=== PATIENT | male | born 1940 | race Caucasian/White ===

== ENCOUNTER 2016-10-26 18:45 | Observation (INO) | payer MEDICARE ==
[~2016-10-26] VITALS: Ht 185.4 cm; Wt 80.0 kg
[2016-10-26] VITALS (10 sets, daily range): BP systolic 84–149; BP diastolic 55–84; PULSE 70–78; RESP 15–18; TEMP 98.3; O2SAT 95–97
[~2016-10-26 18:45] MED LIST: ASPI81CH CHEW; MELA5TAB15 PO; PLAV75TA29 PO; PRIL10CA PO; SIMV20TA PO; XANA1TAB2 PO
[2016-10-26] MEDS ORDERED: IOHEXOL 350 MG/ML 10 ML VIAL (for RAD DIAG) IVCONTRAST ONE (18:46)
[2016-10-26] MEDS ORDERED: SODIUM CHLOR 0.9% 1000 ML INJ 1,000 ML IV SCH (19:06)
--- NOTE | 2016-10-26 19:33 | RADRPT ---
EXAM DATE/TIME: 10/26/2016 19:20 [facility] COMPARISON: CHEST SINGLE AP, January 11, 2016, 10:51. INDICATIONS : Abdominal pain. MEDICAL HISTORY : Myocardial infarction. Hypercholesterolemia. SURGICAL HISTORY : Coronary artery stent. Cardiac cath. ENCOUNTER: Initial ACUITY: 3 months PAIN SCORE: 5/10 LOCATION: Abdomen. FINDINGS: A single view of the chest demonstrates cardiomegaly. Large hiatal hernia similar to prior study. Min imal basal atelectasis. No effusion or pneumothorax. CONCLUSION: 1. Minimal basilar atelectasis. Large hiatal hernia. No pneumothorax. Ramses Leon MD on October 26, 2016 at 19:28 Board Certified Radiologist. This report was verified electronically.
[2016-10-26 19:56] LABS: BASOPHIL % 0.3 % (0.0-2.0); EOSINOPHIL % 0.5 % (0.0-4.0); HEMATOCRIT 34.9 % (39.0-51.0); HEMO FLAGS DIFF FINAL; LYMPH % 17.5 % (9.0-44.0); LYMPHOCYTE # 1.2 TH/MM3 (1.0-4.8); MEAN CELL VOLUME 98.2 FL (80.0-100.0); MEAN CORPUSCULAR HEMOGLOBIN 32.2 PG (27.0-34.0); MEAN CORPUSCULAR HGB CONC 32.8 % (32.0-36.0); MONO % 8.5 % (0.0-8.0); NEUT % 73.2 % (16.0-70.0); PLATELET COUNT 149 TH/MM3 (150-450); RED BLOOD COUNT 3.55 MIL/MM3 (4.50-5.90); RED CELL DISTRIBUTION WIDTH 12.8 % (11.6-17.2); WHITE BLOOD COUNT 6.8 TH/MM3 (4.0-11.0)
[2016-10-26] MEDS ORDERED: MELA1TAB18 PO (20:03)
[2016-10-26] MEDS ORDERED: SIMV40TA PO (20:03)
[2016-10-26] MEDS ORDERED: OMEP20TA PO (20:03)
[2016-10-26 20:25] LABS: ANION GAP 12 MEQ/L (5-15); AST (GOT) 17 U/L (15-37); BLOOD UREA NITROGEN 14 MG/DL (7-18); CHLORIDE 106 MEQ/L (98-107); GLOMERULAR FILTRATION RATE 51 ML/MIN (>89); MAGNESIUM 2.1 MG/DL (1.5-2.5); SODIUM (NA) 141 MEQ/L (136-145)
[2016-10-26 20:26] LABS: ALT (GPT) 20 U/L (12-78)
[2016-10-26 20:28] LABS: APTT (PATIENT) 24.4 SEC (24.3-30.1); INTERNATIONAL NORMALIZED RATIO 1.1 RATIO; PROTHROMBIN TIME - PATIENT 11.7 SEC (9.8-11.6)
[2016-10-26 20:36] LABS: ALKALINE PHOSPHATASE 76 U/L (45-117); TOTAL BILIRUBIN ADULT 0.5 MG/DL (0.2-1.0)
[2016-10-26 20:44] LABS: CREATINE KINASE 51 U/L (39-308)
--- NOTE | 2016-10-26 20:57 | PD ---
HPI Chief Complaint: Syncope/Near-Syncope Time Seen by Provider: 19:06 Travel History International Travel<30 days: No Contact w/Intl Traveler<30days: No Traveled to known affect area: No History of Present Illness HPI 76-year-old male that presents to the ED for evaluation of possible syncope. Patient states that he was driving and he noted that all of a sudden he was losing his vision. Per patient his vision went "white". Per patient she also had some abdominal pain and nausea. He states that he was able to stop and catch himself when he noted that he had an episode of vomiting. Per patient a bystander called the Ambulance and and was recommended that he comes here. Patient was initially found to be hypotensive and was given IV fluids with improvement of his hypotension. Patient states that she's never had anything like this before. He has no history of syncope what he does have a history of TIA in the past. He states that he takes Plavix regularly. He denies any head injury or chest pain at the time of the episode. He does state that he had the pressure on his upper abdomen. Per patient his been having some abdominal discomfort after he eats greasy food for which his been trying to follow with a GI but has not been able to get more than one visit and he is waiting for a CT scan. He has no allergies to medication. He denies any other medical issues. He has no symptoms at this time. PFSH Past Medical History Arthritis: No Autoimmune Disease: No Anxiety: Yes Heart Rhythm Problems: No Cancer: No Cardiac Catheterization: Yes Cardiovascular Problems: Yes High Cholesterol: Yes Chemotherapy: No Chest Pain: Yes Congestive Heart Failure: No Cerebrovascular Accident: Yes (no deficits noted) Diabetes: No Endocrine: No GERD: Yes Genitourinary: No Hiatal Hernia: No Immune Disorder: No Musculoskeletal: Yes Neurologic: Yes Psychiatric: No Reproductive: No Respiratory: No Radiation Therapy: No Sickle Cell Disease: No Thyroid Disease: No Ulcer: No Past Surgical History Abdominal Surgery: No AICD: No Arteriovenous Shunt: No Cardiac Surgery: No Coronary Stent: Yes Endocrine Surgery: No Eye Surgery: Yes Genitourinary Surgery: No Gynecologic Surgery: No Insulin Pump: No Joint Replacement: No Pacemaker: No Thoracic Surgery: No Other Surgery: Yes Social History Alcohol Use: No Tobacco Use: No Substance Use: No Allergies-Medications (Allergen,Severity, Reaction): Coded Allergies: No Known Allergies (Verified , 10/26/16) Reported Meds & Prescriptions Reported Meds & Active Scripts Active Reported Melatonin 10 Mg-1 Mg Tab 10 Mg PO HS PRN Simvastatin 40 Mg Tab 40 Mg PO HS Omeprazole 20 Mg Tab 20 Mg PO DAILY Aspirin 81 Mg Chew 81 Mg CHEW DAILY Xanax (Alprazolam) 1 Mg Tab 1 Mg PO HS PRN Plavix (Clopidogrel Bisulfate) 75 Mg Tab 75 Mg PO DAILY Review of Systems Except as stated in HPI: all other systems reviewed are Neg Physical Exam Narrative GENERAL: SKIN: Warm and dry. HEAD: Atraumatic. Normocephalic. EYES: Pupils equal and round 4 mm reactive to light and accommodation. No scleral icterus. No injection or drainage. ENT: No nasal bleeding or discharge. Mucous membranes pink and moist. Tongue is midline. No uvula deviation. NECK: Trachea midline. No JVD. CARDIOVASCULAR: Regular rate and rhythm. No murmurs, S3, S4. RESPIRATORY: No accessory muscle use. Clear to auscultation. Breath sounds equal bilaterally. GASTROINTESTINAL: Abdomen soft, non-tender, nondistended. Hepatic and splenic margins not palpable. MUSCULOSKELETAL: Extremities without clubbing, cyanosis, or edema. No obvious deformities. Full range of motion of the upper and lower extremities bilaterally. 2+ pulses bilaterally. NEUROLOGICAL: Awake and alert. No obvious cranial nerve deficits. Motor grossly within normal limits. Five out of 5 muscle strength in the arms and legs. Normal speech. PSYCHIATRIC: Appropriate mood and affect; insight and judgment normal. Data Data Last Documented VS Vital Signs Date Time Temp Pulse Resp B/P (MAP) Pulse Ox O2 Delivery O2 Flow Rate FiO2 10/26/16 21:35 70 16 136/66 (89) 95 Room Air 10/26/16 19:03 98.3 Orders Orders Complete Blood Count With Diff (10/26/16 19:06) Comprehensive Metabolic Panel (10/26/16 19:06) Ckmb (Isoenzyme) Profile (10/26/16 19:06) Troponin I (10/26/16 19:06) Prothrombin Time / Inr (Pt) (10/26/16 19:06) Act Partial Throm Time (Ptt) (10/26/16 19:06) Lipase (10/26/16 19:06) Urinalysis - C+S If Indicated (10/26/16 19:06) Magnesium (Mg) (10/26/16 19:06) Thyroid Stimulating Hormone (10/26/16 19:06) Chest, Single Ap (10/26/16 19:06) Ct Brain W/O Iv Contrast(Rout) (10/26/16 19:06) Ct Abd/Pel W Iv Contrast(Rout) (10/26/16 19:06) Iv Access Insert/Monitor (10/26/16 19:06) Ecg Monitoring (10/26/16 19:06) Oximetry (10/26/16 19:06) Orthostatic Vital Signs (10/26/16 19:06) Sodium Chlor 0.9% 1000 Ml Inj (Ns 1000 M (10/26/16 19:06) Iohexol 350 Inj (Omnipaque 350 Inj) (10/26/16 18:46) Alprazolam (Xanax) (10/26/16 22:15) Aspirin Chew (Aspirin Chew) (10/27/16 09:00) Clopidogrel (Plavix) (10/27/16 09:00) (Nf) Melatonin (10/26/16 22:15) (Nf) Omeprazole (10/27/16 09:00) Admit Order (Ed Use Only) (10/26/16 22:04) (Nf) Simvastatin (10/27/16 21:00) Labs Laboratory Tests Test 10/26/16 19:25 10/26/16 21:20 White Blood Count 6.8 TH/MM3 Red Blood Count 3.55 MIL/MM3 Hemoglobin 11.4 GM/DL Hematocrit 34.9 % Mean Corpuscular Volume 98.2 FL Mean Corpuscular Hemoglobin 32.2 PG Mean Corpuscular Hemoglobin Concent 32.8 % Red Cell Distribution Width 12.8 % Platelet Count 149 TH/MM3 Mean Platelet Volume 7.9 FL Neutrophils (%) (Auto) 73.2 % Lymphocytes (%) (Auto) 17.5 % Monocytes (%) (Auto) 8.5 % Eosinophils (%) (Auto) 0.5 % Basophils (%) (Auto) 0.3 % Neutrophils # (Auto) 5.0 TH/MM3 Lymphocytes # (Auto) 1.2 TH/MM3 Monocytes # (Auto) 0.6 TH/MM3 Eosinophils # (Auto) 0.0 TH/MM3 Basophils # (Auto) 0.0 TH/MM3 CBC Comment DIFF FINAL Differential Comment Prothrombin Time 11.7 SEC Prothromb Time International Ratio 1.1 RATIO Activated Partial Thromboplast Time 24.4 SEC Blood Urea Nitrogen 14 MG/DL Creatinine 1.36 MG/DL Random Glucose 167 MG/DL Total Protein 6.5 GM/DL Albumin 3.5 GM/DL Calcium Level 8.2 MG/DL Magnesium Level 2.1 MG/DL Alkaline Phosphatase 76 U/L Aspartate Amino Transf (AST/SGOT) 17 U/L Alanine Aminotransferase (ALT/SGPT) 20 U/L Total Bilirubin 0.5 MG/DL Sodium Level 141 MEQ/L Potassium Level 4.0 MEQ/L Chloride Level 106 MEQ/L Carbon Dioxide Level 23.0 MEQ/L Anion Gap 12 MEQ/L Estimat Glomerular Filtration Rate 51 ML/MIN Total Creatine Kinase 51 U/L Troponin I LESS THAN 0.02 NG/ML Lipase 85 U/L Thyroid Stimulating Hormone 3rd Gen 1.440 uIU/ML Urine Color YELLOW Urine Turbidity HAZY Urine pH 6.0 Urine Specific [place] 1.024 Urine Protein 30 mg/dL Urine Glucose (UA) NEG mg/dL Urine Ketones TRACE mg/dL Urine Occult Blood NEG Urine Nitrite NEG Urine Bilirubin NEG Urine Urobilinogen 2.0 MG/DL Urine Leukocyte Esterase NEG Urine RBC 1 /hpf Urine WBC 4 /hpf Urine Squamous Epithelial Cells <1 /hpf Urine Mucus FEW /lpf Microscopic Urinalysis Comment CULT NOT INDICATED MDM Medical Decision Making Medical Screen Exam Complete: Yes Emergency Medical Condition: Yes Medical Record Reviewed: Yes Interpretation(s) CBC & BMP Diagram 10/26/16 19:25 Total Protein 6.5, Albumin 3.5, Calcium Level 8.2 L, Magnesium Level 2.1, Alkaline Phosphatase 76, Aspartate Amino Transf (AST/SGOT) 17, Alanine Aminotransferase (ALT/SGPT) 20, Total Bilirubin 0.5 Last Impressions Chest X-Ray 10/26/16 190 Signed Impressions: Service Date/Time: Wednesday, October 26, 2016 19:20 - CONCLUSION: 1. Minimal basilar atelectasis. Large hiatal hernia. No pneumothorax. Ramses Leon MD CT shows no sign of acute disease other than moderate hiatal hernia. lipase WNL troponin and CKMB negative UA negative EKG shows sinus rhythm with no sign of acute ischemia or arrhythmia read by me and attending. Differential Diagnosis Syncope versus chest pain versus gastroenteritis versus possible vagal episode versus syncope versus presyncope versus ACS versus arrhythmia Narrative Course 76-year-old male that presents to the ED for evaluation of possible syncope. Patient was properly examined and was found to have signs and symptoms consistent appears to be syncope. Labs and imaging were ordered. Case was discussed in my attending Dr. Harris who agrees with plan. Patient was given IV fluids. Labs and imaging here showed hiatal hernia but otherwise unremarkable. Orthostatics within normal limits. At this time recommendations for admission for further evaluation for possible arrhythmia versus syncope. Case discussed with Dr. Al for [facility] who agrees with admission. Case discussed with my attending Dr Harris who agrees with plan. Diagnosis Primary Impression: Syncope Qualified Codes: R55 - Syncope and collapse Admitting Information Admitting Physician Requests: Observation Ananda Joyner Oct 26, 2016 20:57
--- NOTE | 2016-10-26 21:18 | RADRPT ---
EXAM DATE/TIME: 10/26/2016 20:42 [facility] COMPARISON: No previous studies available for comparison. INDICATIONS : Syncope episode. RADIATION DOSE: 56.35 CTDIvol (mGy) MEDICAL HISTORY : Cardiovascular disease. SURGICAL HISTORY : coronary stent ENCOUNTER: Initial ACUITY: 1 day PAIN SCALE: 0/10 LOCATION: cranial TECHNIQUE: Multiple contiguous axial images were obtained of the head. Using automated exposure control and adj ustment of the mA and/or kV according to patient size, radiation dose was kept as low as reasonably a chievable to obtain optimal diagnostic quality images. DICOM format image data is available electro nically for review and comparison. FINDINGS: CEREBRUM: The ventricles are normal for age. No evidence of midline shift, mass lesion, hemorrhage or acute in farction. No extra-axial fluid collections are seen. POSTERIOR FOSSA: The cerebellum and brainstem are intact. The 4th ventricle is midline. The cerebellopontine angle i s unremarkable. EXTRACRANIAL: The visualized portion of the orbits is intact. SKULL: The calvaria is intact. No evidence of skull fracture. CONCLUSION: 1. No acute intracranial abnormalities. Ramses Leon MD on October 26, 2016 at 21:10 Board Certified Radiologist. This report was verified electronically.
--- NOTE | 2016-10-26 21:24 | RADRPT ---
EXAM DATE/TIME: 10/26/2016 20:44 [facility] COMPARISON: No previous studies available for comparison. INDICATIONS : Patient complains of abdominal pain. IV CONTRAST: 80 cc Omnipaque 350 (iohexol) IV ORAL CONTRAST: No oral contrast ingested. RADIATION DOSE: 9.96 CTDIvol (mGy) MEDICAL HISTORY : Cardiovascular disease. SURGICAL HISTORY : coronary stents ENCOUNTER: Initial ACUITY: 1 day PAIN SCALE: 4/10 LOCATION: abdomen TECHNIQUE: Volumetric scanning of the abdomen and pelvis was performed. Using automated exposure control and ad justment of the mA and/or kV according to patient size, radiation dose was kept as low as reasonably achievable to obtain optimal diagnostic quality images. DICOM format image data is available electro nically for review and comparison. FINDINGS: Mild dependent atelectasis at the lung bases. There is mild ascites in the abdomen and pelvis. Large hiatal hernia with some fluid also herniated around the hiatal hernia. No acute findings in the liver , spleen, adrenals, and kidneys or pancreas. No calcified gallstones or biliary ductal dilatation. No bowel obstruction. Colonic diverticula without diverticulitis. No acute bony abnormality. Bone isl ands in the pelvis. CONCLUSION: 1. Mild ascites in the abdomen and pelvis. The liver is slightly heterogeneous but without focal lesi on identified. 2. Moderate to large hiatal hernia containing stomach and some fluid. 3. No bowel obstruction. No free air. Ramses Leon MD on October 26, 2016 at 21:16 Board Certified Radiologist. This report was verified electronically.
[2016-10-26 21:41] LABS: BLOOD, URINE NEG (NEG); COMMENT (UR) CULT NOT INDICATED; CULTURE IF INDICATED CULT NOT INDICATED; GLUCOSE,URINE NEG (NEG); KETONE, URINE TRACE mg/dL (NEG); MUCUS URINE FEW /lpf (OCC); NITRITE,URINE NEG (NEG); SQUAMOUS EPITHELIAL CELL URINE <1 /hpf (0-5); URINE COLOR YELLOW (YELLW/STRAW)
[2016-10-26] MEDS ORDERED: ALPRAZolam 1 MG TAB PO PRN (22:15)
[2016-10-26] MEDS ORDERED: NALOXONE HCL 0.4 MG/ML AMP IV PRN (22:15)
[2016-10-26] MEDS ORDERED: MELATONIN 5 MG TAB PO PRN (22:15)
[2016-10-26] MEDS ORDERED: ONDANSETRON HCL 4 MG/2 ML VIAL IVP PRN (22:15)
[2016-10-26] MEDS ORDERED: LACTULOSE SYRUP 20 GM/30 ML CUP PO PRN (22:15)
[2016-10-26] MEDS ORDERED: SENNOSIDES 8.6 MG TAB PO PRN (22:15)
[2016-10-26] MEDS ORDERED: BISACODYL 10 MG SUPP RECTAL PRN (22:15)
[2016-10-26] MEDS ORDERED: ACETAMINOPHEN 325 MG TAB PO PRN (22:15)
[2016-10-26] MEDS ORDERED: SODIUM CHLORIDE 0.9% FLUSH 10 ML FLUSH IV FLUSH PRN (22:15)
[2016-10-26] MEDS ORDERED: MAGNESIUM HYDROXIDE SUSP 30 ML CUP PO PRN (22:15)
--- NOTE | 2016-10-26 22:17 | HHI.HP ---
HPI Service [facility] Primary Care Physician Juwan Flores M.D. Admission Diagnosis syncopal episode Chief Complaint: passed out Travel History International Travel<30 Days: No Contact w/Intl Traveler <30 Da: No Traveled to Known Affected Are: No History of Present Illness 76-year-old male that presents to the ED for evaluation of possible syncope. Patient states that he was driving and he noted that all of a sudden he was losing his vision. Per patient his vision went "white". Per patient she also had some abdominal pain and nausea. He states that he was able to stop and catch himself when he noted that he had an episode of vomiting. Per patient a bystander called the Ambulance and and was recommended that he comes here. Patient was initially found to be hypotensive and was given IV fluids with improvement of his hypotension. Patient states that she's never had anything like this before. He has no history of syncope what he does have a history of TIA in the past. He states that he takes Plavix regularly. He denies any head injury or chest pain at the time of the episode. He does state that he had the pressure on his upper abdomen. Per patient his been having some abdominal discomfort after he eats greasy food for which his been trying to follow with a GI but has not been able to get more than one visit and he is waiting for a CT scan. Patient ate at restaurant and then he had the abdominal symptoms. He has no allergies to medication. He denies any other medical issues. He has no symptoms at this time. Patient no residual symptoms and has seen GI and they ordered CT as out patient will admit to observation and monitor for any arrhythmia. Review of Systems Gastrointestinal: COMPLAINS OF: Abdominal pain, Nausea, Vomiting Past Family Social History Past Medical History tia angina in past had cardiac cath,gerd,prostate problem in past, 3 months abdominal pain Past Surgical History eye surgery Reported Medications Melatonin 10 Mg-1 Mg Tab 10 Mg PO HS PRN Simvastatin 40 Mg Tab 40 Mg PO HS Omeprazole 20 Mg Tab 20 Mg PO DAILY Aspirin 81 Mg Chew 81 Mg CHEW DAILY Xanax (Alprazolam) 1 Mg Tab 1 Mg PO HS PRN Plavix (Clopidogrel Bisulfate) 75 Mg Tab 75 Mg PO DAILY Allergies: Coded Allergies: No Known Allergies (Verified , 10/26/16) Social History NS,ND Physical Exam Vital Signs Vital Signs Date Time Temp Pulse Resp B/P (MAP) Pulse Ox O2 Delivery O2 Flow Rate FiO2 10/26/16 21:35 70 16 136/66 (89) 95 Room Air 10/26/16 20:30 66 15 124/60 (81) 10/26/16 20:20 74 16 133/73 (93) 10/26/16 20:15 74 18 148/79 (102) 10/26/16 20:05 66 18 103/76 (85) 10/26/16 19:50 72 15 111/70 (84) 97 Room Air 10/26/16 19:45 70 18 88/57 (67) 95 Room Air 10/26/16 19:40 78 15 84/55 (65) 96 Room Air 10/26/16 19:03 98.3 72 16 124/72 (89) 97 Physical Exam GENERAL: This is a well-nourished, well-developed patient, in no apparent distress. SKIN: No rashes, ecchymoses or lesions. Cool and dry. HEAD: Atraumatic. Normocephalic. No temporal or scalp tenderness. EYES: Pupils equal round and reactive. Extraocular motions intact. No scleral icterus. No injection or drainage. ENT: Nose without bleeding, purulent drainage or septal hematoma. Throat without erythema, tonsillar hypertrophy or exudate. Uvula midline. Airway patent. NECK: Trachea midline. No JVD or lymphadenopathy. Supple, nontender, no meningeal signs. CARDIOVASCULAR: Regular rate and rhythm without murmurs, gallops, or rubs. RESPIRATORY: Clear to auscultation. Breath sounds equal bilaterally. No wheezes , rales, or rhonchi. GASTROINTESTINAL: Abdomen soft, non-tender, nondistended. No hepato-splenomegaly , or palpable masses. No guarding. MUSCULOSKELETAL: Extremities without clubbing, cyanosis, or edema. No joint tenderness, effusion, or edema noted. No calf tenderness. Negative Homans sign bilaterally. NEUROLOGICAL: Awake and alert. Cranial nerves II through XII intact. Motor and sensory grossly within normal limits. Five out of 5 muscle strength in all muscle groups. Normal speech. Laboratory Laboratory Tests Test 10/26/16 19:25 10/26/16 21:20 White Blood Count 6.8 Red Blood Count 3.55 Hemoglobin 11.4 Hematocrit 34.9 Mean Corpuscular Volume 98.2 Mean Corpuscular Hemoglobin 32.2 Mean Corpuscular Hemoglobin Concent 32.8 Red Cell Distribution Width 12.8 Platelet Count 149 Mean Platelet Volume 7.9 Neutrophils (%) (Auto) 73.2 Lymphocytes (%) (Auto) 17.5 Monocytes (%) (Auto) 8.5 Eosinophils (%) (Auto) 0.5 Basophils (%) (Auto) 0.3 Neutrophils # (Auto) 5.0 Lymphocytes # (Auto) 1.2 Monocytes # (Auto) 0.6 Eosinophils # (Auto) 0.0 Basophils # (Auto) 0.0 CBC Comment DIFF FINAL Differential Comment Prothrombin Time 11.7 Prothromb Time International Ratio 1.1 Activated Partial Thromboplast Time 24.4 Blood Urea Nitrogen 14 Creatinine 1.36 Random Glucose 167 Total Protein 6.5 Albumin 3.5 Calcium Level 8.2 Magnesium Level 2.1 Alkaline Phosphatase 76 Aspartate Amino Transf (AST/SGOT) 17 Alanine Aminotransferase (ALT/SGPT) 20 Total Bilirubin 0.5 Sodium Level 141 Potassium Level 4.0 Chloride Level 106 Carbon Dioxide Level 23.0 Anion Gap 12 Estimat Glomerular Filtration Rate 51 Total Creatine Kinase 51 Troponin I LESS THAN 0.02 Lipase 85 Thyroid Stimulating Hormone 3rd Gen 1.440 Urine Color YELLOW Urine Turbidity HAZY Urine pH 6.0 Urine Specific [place] 1.024 Urine Protein 30 Urine Glucose (UA) NEG Urine Ketones TRACE Urine Occult Blood NEG Urine Nitrite NEG Urine Bilirubin NEG Urine Urobilinogen 2.0 Urine Leukocyte Esterase NEG Urine RBC 1 Urine WBC 4 Urine Squamous Epithelial Cells <1 Urine Mucus FEW Microscopic Urinalysis Comment CULT NOT INDICATED Result Diagram: 10/26/16192410/26/161924 Imaging Last 24 hours Impressions Chest X-Ray 10/26/161905 Signed Impressions: Service Date/Time: Wednesday, October 26, 2016 19:20 - CONCLUSION: 1. Minimal basilar atelectasis. Large hiatal hernia. No pneumothorax. Ramses Leon MD Course In er had CT abdomen shows large hiatal hernia extending to stomach otherwise negative for acute problem ,given IV fluid as initially had low blood pressure which improved Caprini VTE Risk Assessment Caprini VTE Risk Assessment: Mod/High Risk (score >= 2) Caprini Risk Assessment Model Point Value = 1 Point Value = 2 Point Value = 3 Point Value = 5 Age 41-60 Minor surgery BMI > 25 kg/m2 Swollen legs Varicose veins or History of unexplained or recurrent spontaneous Oral contraceptives or hormone replacement Sepsis (< 1 month) Serious lung disease, including pneumonia (< 1 month) Abnormal pulmonary function Acute myocardial infarction Congestive heart failure (< 1 month) History of inflammatory bowel disease Medical patient at bed rest Age 61-74 Arthroscopic surgery Major open surgery (> 45 min) Laparoscopic surgery (> 45 min) Malignancy Confined to bed (> 72 hours) Immobilizing plaster cast Central venous access Age >= 75 History of VTE Family history of VTE Factor V Leiden Prothrombin [id number] Lupus anticoagulant Anticardiolipin antibodies Elevated serum homocysteine Heparin-induced thrombocytopenia Other congenital or acquired thrombophilia Stroke (< 1 month) Elective arthroplasty Hip, pelvis, or leg fracture Acute spinal cord injury (< 1 month) Prophylaxis Regimen Total Risk Factor Score Risk Level Prophylaxis Regimen 0-1 Low Early ambulation 2 Moderate Order ONE of the following: *Sequential Compression Device (SCD) *Heparin 5000 units SQ BID 3-4 Higher Order ONE of the following medications: *Heparin 5000 units SQ TID *Enoxaparin/Lovenox 40 mg SQ daily (WT < 150 kg, CrCl > 30 mL/min) *Enoxaparin/Lovenox 30 mg SQ daily (WT < 150 kg, CrCl > 10-29 mL/min) *Enoxaparin/Lovenox 30 mg SQ BID (WT < 150 kg, CrCl > 30 mL/min) AND/OR *Sequential Compression Device (SCD) 5 or more Highest Order ONE of the following medications: *Heparin 5000 units SQ TID (Preferred with Epidurals) *Enoxaparin/Lovenox 40 mg SQ daily (WT < 150 kg, CrCl > 30 mL/min) *Enoxaparin/Lovenox 30 mg SQ daily (WT < 150 kg, CrCl > 10-29 mL/min) *Enoxaparin/Lovenox 30 mg SQ BID (WT < 150 kg, CrCl > 30 mL/min) AND *Sequential Compression Device (SCD) Assessment and Plan Problem List: (1) Syncope ICD Codes: R55 - Syncope and collapse Status: Acute Plan: will place in observation monitor ,for any arrhythmia ,syncope could be vassovagal as patient did have episode vomit after eating meal (2) Abdominal pain ICD Codes: R10.9 - Unspecified abdominal pain Plan: probably related to large hiatal hernia Assessment and Plan further plan as case progresses Code Status full Discussed Condition With patient Problem Qualifiers (1) Syncope: Qualified Codes: R55 - Syncope and collapse Won Ruiz MD Oct 26, 2016 22:17
[2016-10-27] VITALS (7 sets, daily range): BP systolic 116–137; BP diastolic 58–74; PULSE 57–82; RESP 16–18; TEMP 97.4–98.7; O2SAT 94–97
[2016-10-27] MEDS ORDERED: PANTOPRAZOLE SOD 20 MG DELAYED RELEASE TAB PO SCH (09:00)
[2016-10-27] MEDS ORDERED: SODIUM CHLORIDE 0.9% FLUSH 10 ML FLUSH IV FLUSH SCH (09:00)
[2016-10-27] MEDS ORDERED: ASPIRIN 81 MG CHEW TAB CHEW SCH (09:00)
[2016-10-27] MEDS ORDERED: CLOPIDOGREL 75 MG TAB PO SCH (09:00)
[2016-10-27] MEDS: DOCUSATE SODIUM 50 MG/SENNA 8.6 MG TAB PO SCH ×2 (09:00→11:47)
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
--- NOTE | 2016-10-27 09:39 | PD.CONS ---
HPI History of Present Illness This is a 76 year old male with hx TIA, pettit's s/p esophagectomy, gastric ulcers who presented after an episode of syncope and "passed out" and vomited, and abd pain. The syncope happened after experiencing an episode of epigastric pain that radiated out to his groin. He started having abd pain 3 months ago, epigastric area. The pain would be about 30 minutes after eating dinner, not breakfast or lunch. The pain was a dull pain. [place] foods like burgers and fries aggravate the pain. Denies prior problems with gallbladder, liver, pancreas. Admits loss of >10lbs in last 3 months. No diarrhea, blood in stool or vomit. Denies NSAID use, takes prilosec for heartburn. NO n/v with this pain until last night. He saw Dr Meeks 1 week ago for this pain, per EMR she had planned EGDcolonoscopy for next week and a CT scan. Had EGD 2008, finding of Barretts. Had colonoscopy 2008 as well, normal per pt. He takes plavix for hx TIA 2001, [place] 2003. PFSH Past Medical History [place] 2003 TIA 2001\\ Pettit's blind OD OA Past Surgical History T& A appendectomy bilat elbow bursa removal excision skin ca Coded Allergies: No Known Allergies (Verified , 10/26/16) Family History none Social History no ETOH no tobacco use no illicit drug use Review of Systems Constitutional: COMPLAINS OF: Weight loss, DENIES: Fever Eyes: DENIES: Blurred vision Ears, nose, mouth, throat: DENIES: Hearing loss Cardiovascular: DENIES: Chest pain Gastrointestinal: COMPLAINS OF: Abdominal pain, Nausea, Vomiting, Heartburn, DENIES: Black stools, Bloody stools, Constipation, Diarrhea, Hematemesis Genitourinary: DENIES: Hematuria Musculoskeletal: DENIES: Joint Swelling Integumentary: DENIES: Jaundice Neurologic: DENIES: Headache Psychiatric: DENIES: Confusion GI Exam Vitals I&O Vital Signs Date Time Temp Pulse Resp B/P (MAP) Pulse Ox O2 Delivery O2 Flow Rate FiO2 10/27/16 04:14 97.4 57 18 116/58 (77) 94 10/27/16 04:11 58 10/27/16 02:01 98.2 82 17 137/68 (91) 97 10/27/16 00:53 78 10/26/16 23:05 69 14 149/84 (105) 96 10/26/16 21:35 70 16 136/66 (89) 95 Room Air 10/26/16 20:30 66 15 124/60 (81) 10/26/16 20:20 74 16 133/73 (93) 10/26/16 20:15 74 18 148/79 (102) 10/26/16 20:05 66 18 103/76 (85) 10/26/16 19:50 72 15 111/70 (84) 97 Room Air 10/26/16 19:45 70 18 88/57 (67) 95 Room Air 10/26/16 19:40 78 15 84/55 (65) 96 Room Air 10/26/16 19:03 98.3 72 16 124/72 (89) 97 Imaging Last Impressions Head CT 10/26/161905 Signed Impressions: Service Date/Time: Wednesday, October 26, 2016 20:42 - CONCLUSION: 1. No acute intracranial abnormalities. Ramses Leon MD Chest X-Ray 10/26/161905 Signed Impressions: Service Date/Time: Wednesday, October 26, 2016 19:20 - CONCLUSION: 1. Minimal basilar atelectasis. Large hiatal hernia. No pneumothorax. Ramses Leon MD Abdomen/Pelvis CT 10/26/161905 Signed Impressions: Service Date/Time: Wednesday, October 26, 2016 20:44 - CONCLUSION: 1. Mild ascites in the abdomen and pelvis. The liver is slightly heterogeneous but without focal lesion identified. 2. Moderate to large hiatal hernia containing stomach and some fluid. 3. No bowel obstruction. No free air. Ramses Leon MD Laboratory Test 10/26/16 19:25 10/26/16 21:20 White Blood Count 6.8 TH/MM3 Red Blood Count 3.55 MIL/MM3 Hemoglobin 11.4 GM/DL Hematocrit 34.9 % Mean Corpuscular Volume 98.2 FL Mean Corpuscular Hemoglobin 32.2 PG Mean Corpuscular Hemoglobin Concent 32.8 % Red Cell Distribution Width 12.8 % Platelet Count 149 TH/MM3 Mean Platelet Volume 7.9 FL Neutrophils (%) (Auto) 73.2 % Lymphocytes (%) (Auto) 17.5 % Monocytes (%) (Auto) 8.5 % Eosinophils (%) (Auto) 0.5 % Basophils (%) (Auto) 0.3 % Neutrophils # (Auto) 5.0 TH/MM3 Lymphocytes # (Auto) 1.2 TH/MM3 Monocytes # (Auto) 0.6 TH/MM3 Eosinophils # (Auto) 0.0 TH/MM3 Basophils # (Auto) 0.0 TH/MM3 CBC Comment DIFF FINAL Differential Comment Prothrombin Time 11.7 SEC Prothromb Time International Ratio 1.1 RATIO Activated Partial Thromboplast Time 24.4 SEC Blood Urea Nitrogen 14 MG/DL Creatinine 1.36 MG/DL Random Glucose 167 MG/DL Total Protein 6.5 GM/DL Albumin 3.5 GM/DL Calcium Level 8.2 MG/DL Magnesium Level 2.1 MG/DL Alkaline Phosphatase 76 U/L Aspartate Amino Transf (AST/SGOT) 17 U/L Alanine Aminotransferase (ALT/SGPT) 20 U/L Total Bilirubin 0.5 MG/DL Sodium Level 141 MEQ/L Potassium Level 4.0 MEQ/L Chloride Level 106 MEQ/L Carbon Dioxide Level 23.0 MEQ/L Anion Gap 12 MEQ/L Estimat Glomerular Filtration Rate 51 ML/MIN Total Creatine Kinase 51 U/L Troponin I LESS THAN 0.02 NG/ML Lipase 85 U/L Thyroid Stimulating Hormone 3rd Gen 1.440 uIU/ML Urine Color YELLOW Urine Turbidity HAZY Urine pH 6.0 Urine Specific [place] 1.024 Urine Protein 30 mg/dL Urine Glucose (UA) NEG mg/dL Urine Ketones TRACE mg/dL Urine Occult Blood NEG Urine Nitrite NEG Urine Bilirubin NEG Urine Urobilinogen 2.0 MG/DL Urine Leukocyte Esterase NEG Urine RBC 1 /hpf Urine WBC 4 /hpf Urine Squamous Epithelial Cells <1 /hpf Urine Mucus FEW /lpf Microscopic Urinalysis Comment CULT NOT INDICATED Physical Examination HEENT: PERRL; normocephalic; atraumatic; no jaundice. CHEST: CTA CARDIAC: RRR ABDOMEN: Soft, nondistended,diffuse TTp; no hepatosplenomegaly; bowel sounds are present in all four quadrants. EXTREMITIES: No clubbing, cyanosis, or edema. SKIN: Normal; no rash; no jaundice. SOFTWARE PUBLISHER: No focal deficits; alert and oriented times three. Assessment and Plan Plan ASSESSMENT - epigastric pain, n/v - onset 3 m ago post prandial epigastric pain exacerbated by fatty foods. recent episode severe pain and subsequent syncopal episode with n/v. EGD/colonoscopy 2008 finding of Pettit's. Has distant hx colon polyps. - weight loss - 10 lbs in last 3 months PLAN - EGD/colonoscopy when plavix held for 3 days inpt vs outpt - pt does not wish to stay in hospital for this - RUQ - monitor labs - low fat diet if tolerated - further recs to follow This pt seen by myself and Dr Crain and this note is written on his behalf Corinna De La Cruz Oct 27, 2016 09:39
--- NOTE | 2016-10-27 13:27 | RADRPT ---
EXAM DATE/TIME: 10/27/2016 12:45 [facility] COMPARISON: No previous studies available for comparison. INDICATIONS : Right upper quadrant pain. MEDICAL HISTORY : Myocardial infarction. Hypercholesterolemia. Cataracts. CVA. Chest pain. Hiatal hernia. Abdominal p ain. GERD. Anxiety. SURGICAL HISTORY : Coronary artery stent. Cardiac cath. Eye surgery. Skin cancer removed from right chest. ENCOUNTER: Initial ACUITY: 1 day PAIN SCORE: 5/10 LOCATION: Right upper quadrant MEASUREMENTS: LIVER: 15.1 cm length COMMON DUCT: 3 mm RIGHT KIDNEY: 11.4 x 5.2 x 5.2 cm FINDINGS: Ultrasound of the upper abdomen demonstrates normal echogenicity of the liver. No intrahepatic or ext ra hepatic ductal dilatation is seen. There is hepatopedal flow through the portal vein. Trace ascit es is presentThe pancreas is not visualized secondary to overlying bowel gas. The right kidney is unr emarkable. CONCLUSION: 1. No evidence of acute abdominal process. No masses are identified. Trace ascites Markos Michael MD on October 27, 2016 at 13:22 Board Certified Radiologist. This report was verified electronically.
[2016-10-27] MEDS ORDERED: PANT20 PO (14:36)
--- NOTE | 2016-10-27 14:37 | HHI.DCPOC ---
Discharge Care Plan Diagnosis: (1) Vasovagal syncope (2) Abdominal pain (3) CAD (coronary artery disease) (4) Anxiety Goals to Promote Your Health - He is to call Dr. Meeks's office to schedule the EGD/colonoscopy as an outpt. Pt will be given instructions from Dr. Meeks's office regarding holding his Plavix prior to the procedure. Its imperative that he has these procedures performed in light of his continued abd pain and weight loss to rule out other possible etiologies for these symptoms, including malignancy. - He is to eat smaller more frequent meals throughout the day. - Recommended that he drink some Ensure 2-3 drinks per day as well - He is to continue on Protonix 20mg twice daily. - Pt needs to followup with Dr. Meeks for the EGD/colonoscopy and his PCP, Dr. Juwan Gonzalez, in 1 week. Directions to Meet Your Goals Take your medications as prescribed Follow your dietary instruction Follow activity as directed Keep your appointments as scheduled Take your immunizations and boosters as scheduled If your symptoms worsen call your PCP, if no PCP go to Urgent Care Center or Emergency Room Smoking is Dangerous to Your Health. Avoid second hand smoke Call the 24-hour hour crisis hotline for domestic abuse at Delfina Ventura Oct 27, 2016 14:37
[2016-10-27] MEDS ORDERED: PRAVASTATIN SOD 80 MG TAB PO SCH (21:00)
== END 2016-10-27 16:46 | disposition home or self-care (01) ==
LOC: NEPE 18:45 → NEDA 22:06 → NEPHCDU 23:51
PROVIDERS: ADMIT Hospitalist; ATTEND Hospitalist
DX: R55 Syncope and collapse (principal); R10.9 Unspecified abdominal pain; I25.10 Atherosclerotic heart disease of native coronary artery without angina pectoris; F41.9 Anxiety disorder, unspecified; J98.11 Atelectasis; K21.9 Gastro-esophageal reflux disease without esophagitis; R18.8 Other ascites; Z95.5 Presence of coronary angioplasty implant and graft; Z86.73 Personal history of transient ischemic attack (TIA), and cerebral infarction without residual deficits; Z79.82 Long term (current) use of aspirin; Z79.02 Long term (current) use of antithrombotics/antiplatelets
CPT/HCPCS: 70450; 71010; 74177; 76705; 80053; 81001; 82550; 83690; 83735; 84443; 84484; 85025; 85610; 85730; 96360; 99285; G0378; J7030; Q9967